=== PATIENT | female | born 1945 | race African-American/Black ===

== ENCOUNTER 2018-09-15 05:03 | Inpatient (IN) ==
--- NOTE | 2018-09-15 11:24 | Diag Imaging Result Doc PS360 ---
EXAM: CHEST-2 VIEWS HISTORY: LEVEL OF AMP TECHNIQUE: Chest two views COMPARISON: 05/27/2018 FINDINGS: The heart is enlarged. There are sternal wires and surgical clips. The lungs are well expanded. Mild increased interstitial markings. These are less pronounced than on the prior study. No consolidation. No pleural effusions. IMPRESSION: Mild interval improvement. Electronically signed by Franck Cameron 09/15/2018 11:21 AM
[2018-09-15 11:53] LABS: BASO# 0.04 X1000 (0.0-0.2); BASO% 0.3 % (0.0-0.8); EOS# 1.77 X1000 (0.0-0.7); EOS% 15.4 % (0.0-10.0); HEMATOCRIT 40.9 % (37.0-47.0); HEMOGLOBIN 11.8 g/dL (12.0-16.0); IMM GRAN# 0.02 X1000 (0.0-0.04); IMM GRAN% 0.2 % (0.0-0.5); LYMPH# 1.49 X1000 (1.2-3.4); MCH 25.3 PG (27-31); MCHC 28.9 g/dL (33-37); MCV 87.6 FL (81-99); MONO# 0.79 X1000 (0.11-0.59); MONO% 6.9 % (1.7-9.3); MPV 9.7 FL (7.4-10.4); NEUT# 7.35 X1000 (1.4-6.5); NEUT% 64.2 % (42.2-75.2); PLT 191 X1000 (130-400); RBC 4.67 XMIL (4.2-5.4); RDW 17.4 % (11.5-14.5); WBC 11.46 X1000 (4.8-10.8)
[2018-09-15] MEDS ORDERED: VANCOMYCIN 1 GM/NS 1 GM/250 ML IVPB ONE (12:13)
[2018-09-15] MEDS ORDERED: REGLAN ONE (12:13)
[2018-09-15] MEDS ORDERED: 1/2 NS 500 ML ONE (12:13)
[2018-09-15] MEDS ORDERED: PEPCID ONE (12:13)
[2018-09-15 12:23] LABS: BANDS 2 % (0-1); EOS 10 % (1-10); LYMPHS 22 % (21-51); MONO 4 % (1-9); SEGS 62 % (42-75)
[2018-09-15 12:25] LABS: ANISOCYTOSIS 1+; HYPOCHROM 1+
[2018-09-15 12:33] LABS: CALCIUM 10.1 mg/dL (8.8-10.2); POTASSIUM 4.1 mmol/L (3.5-5.1)
[2018-09-15 12:36] LABS: CREATININE 5.6 mg/dL (0.5-0.9)
[2018-09-15] MEDS ORDERED: DIPRIVAN 1% ONE (13:20)
[2018-09-15] MEDS ORDERED: FENTANYL ONE (13:20)
[2018-09-15] MEDS ORDERED: XYLOCAINE-MPF 2% ONE (13:24)
[2018-09-15] MEDS ORDERED: VERSED ONE (14:02)
[2018-09-15] MEDS ORDERED: PITRESSIN ONE (14:46)
[2018-09-15] MEDS ORDERED: DILAUDID IV PRN (15:12)
[2018-09-15] MEDS ORDERED: ZOFRAN IV PRN (15:12)
[2018-09-15] MEDS ORDERED: SALINE LOCK IV FLUID XX ONE (15:12)
[2018-09-15] MEDS: DILAUDID ONE ×3 (15:42→22:17)
[2018-09-15] MEDS: NORCO-7.5 PO PRN (16:58)
[2018-09-15] MEDS: CARAFATE LIQUID PO SCH (16:59)
[2018-09-15] MEDS: RENAGEL PO SCH (16:59)
--- NOTE | 2018-09-15 20:45 | VASCULAR LAB ---
DATE: 09/15/2018 REQUESTING PHYSICIAN: Dr. Thomas Latif. INDICATION: Amputation level of the right leg with a history of left above-knee amputation. APPLICATION CONSULTANT: Matt. FINDINGS: Brachial pressure on the right is 152. High thigh on the right is 217. Low thigh on the right is 231. Calf on the right is 277. DP on the right is 288. PT on the right is 0. Toe pressure is 0. KB is 1.89. IMPRESSION: She has pulsatile flow to the level of the tibial vessels; however, the posterior tibial is occluded. Suspect that she would most likely heal an above-knee amputation based off this exam, although her KB is elevated. This does suggest some degree of calcific noncompressibility, and the flow to the calf may be adversely affected. cc: MD Thomas Torres MD
[2018-09-15] MEDS: LIVALO PO SCH (21:35)
[2018-09-15] MEDS: PROTONIX PO SCH (21:35)
[2018-09-15] MEDS: KEFZOL 1 GM/D5W 1 GM/50 ML IVPB IV SCH (21:35)
[2018-09-15] MEDS: ICAR-C PO SCH (21:35)
[2018-09-15] MEDS: PERIDEX MT SCH (21:36)
[2018-09-15] MEDS: NEURONTIN PO SCH (21:37)
[2018-09-15] MEDS: DUONEB (A & A) INH SCH (22:30)
--- NOTE | 2018-09-15 23:40 | OPERATIVE NOTE ---
PROCEDURE DATE: 09/15/2018 PROCEDURE PERFORMED: Right below-knee amputation. SURGEON: Thomas Latif MD. TERRITORY SALES REPRESENTATIVE: PREOPERATIVE DIAGNOSIS: 1. Ischemic gangrene of the right foot. 2. Chronic kidney disease stage 5. POSTOP DIAGNOSIS: 1. Ischemic gangrene of the right foot. 2. Chronic kidney disease stage 5. DESCRIPTION OF PROCEDURE: Satisfactory general anesthesia was achieved. The foot was excluded. The right leg was prepped and draped in a sterile fashion. We marked the skin in a curvilinear fashion 4 fingerbreadths below the tibial tubercle. We then marked the posterior flap 15 cm below the curvilinear incision. We then incised the skin, the area was marked making a short anterior flap, a long posterior flap. We carried our incision in the subcutaneous tissue. Some veins required a 3-0 Polysorb ookcgc-yi-eqrls stitch for bleeding control. We then used electrocautery to go through the subcutaneous tissue to the muscle groups. We divided the anterior muscle group down to the anterior tibial arteries. The artery was clamped and divided and suture ligated with 2-0 silk suture ligature. We then proceeded to the muscle groups through the circumference of the incision. We passed a Kalyn behind the tibia, passed a Gigli saw and then transected the tibia tapering it medially. We then used a periosteal elevator to raise the periosteum off the fibula and transected it a centimeter above into the tibia. We then used a guillotine knife to slide behind both bones reaching the end of the dissection and transected the muscle there and handed off the lower leg and foot. The peroneal and posterior tibial arteries were clamped. We then suture ligated them with 2-0 silk suture ligatures. One small branch also required a 2-0 silk suture ligature. This achieved satisfactory hemostasis. The tibial nerve was ligated right past the tibia and fibula with a 3-0 Polysorb simple tie and transected there. We used a file to smooth off the end of the tibia. We then copiously irrigated the flap. Hemostasis was satisfactory. We then folded the posterior flap anteriorly, used 0 Polysorb to approximate the muscle groups. We then used 3-0 Polysorb in the subcutaneous tissue and lo were used to approximate the skin. Xeroform and sterile 4 x 4s followed by sterile Kerlix was applied. An OCL splint was then positioned to keep the knee straight. This was then covered with a 6 inch Oracio. She tolerated it well. Was sent to the recovery room in satisfactory condition. cc: Thomas Latif MD MTDD
[2018-09-16] MEDS: NORCO-10 PO PRN ×2 (00:56→11:13)
--- NOTE | 2018-09-16 01:29 | NEPHROLOGY CONSULTATION ---
DATE: 09/15/2018 REASON FOR CONSULTATION: Dialysis. HISTORY OF PRESENT ILLNESS: Ms. Sanford is a 73-year-old woman who is well known to me. She has CKD 5D and receives dialysis every Friday, Friday, and Friday. She was admitted for elective right BKA. She has undergone her surgery, and she is back in her room now. She has no other new complaints, but she is having some rhonchi and wheezing that the family has been aware of at home, and they have been treating with nebulizers. No chills or fevers. No sputum production. Her appetite is voracious, and she has been gaining some weight back. PAST MEDICAL HISTORY: CKD 5D, peripheral vascular disease, calciphylaxis, hypertension, diabetes. MEDICATIONS: Home medications include docusate, gabapentin, sevelamer, aspirin, multivitamin, iron, pantoprazole, pitavastatin, polyethylene glycol, sitagliptin, Mucinex, hydrocodone, sucralfate, sennosides. ALLERGIES: Penicillin and amoxicillin. SOCIAL HISTORY: Her recently . She is at home and cared for by her very supportive family. FAMILY HISTORY: Otherwise noncontributory. REVIEW OF SYSTEMS: Otherwise noncontributory. PHYSICAL EXAMINATION: Vital Signs: Blood pressure 105/47, heart rate 72, respirations 21, afebrile. General: No acute distress. Skin: Warm and dry. HEENT: Conjunctivae are pink. Neck: Neck veins are not distended. Heart: Regular. No gallops. Lungs: Equal. No crackles or wheezes. Abdomen: Soft, nontender. Bowel sounds are present. Extremities: Minimal edema. No clubbing or cyanosis. Surgical wound is dressed. IMPRESSION: 1. Chronic kidney disease 5D. She is doing well. She is due for dialysis tomorrow. 2. Electrolytes, acid-base, and volume status. All in target. 3. Wheezing. Will order nebulizer treatments. 4. Anemia. In target. cc: MD Thomas Rocha MD
[2018-09-16] MEDS: DUONEB (A & A) INH SCH ×4 (03:26→22:49)
[2018-09-16 06:38] LABS: BASO# 0.03 X1000 (0.0-0.2); BASO% 0.3 % (0.0-0.8); EOS# 1.03 X1000 (0.0-0.7); EOS% 11.8 % (0.0-10.0); HEMATOCRIT 34.4 % (37.0-47.0); LYMPH# 1.59 X1000 (1.2-3.4); LYMPH% 18.2 % (20.5-51.1); MCH 25.8 PG (27-31); MCHC 29.1 g/dL (33-37); MCV 88.7 FL (81-99); MONO# 0.79 X1000 (0.11-0.59); MPV 10.1 FL (7.4-10.4); NEUT# 5.29 X1000 (1.4-6.5); NEUT% 60.7 % (42.2-75.2); PLT 174 X1000 (130-400); RBC 3.88 XMIL (4.2-5.4); WBC 8.73 X1000 (4.8-10.8)
[2018-09-16 06:55] LABS: CALCIUM 9.3 mg/dL (8.8-10.2); POTASSIUM 4.5 mmol/L (3.5-5.1)
[2018-09-16] MEDS ORDERED: HEPARIN IV PRN (06:58)
[2018-09-16] MEDS ORDERED: NS 2,000 ML MISC PRN (06:58)
[2018-09-16] MEDS ORDERED: TIGHT: 0.2 ML/HR FOR DIALYSIS MISC PRN (06:58)
[2018-09-16 07:00] LABS: CREATININE 6.3 mg/dL (0.5-0.9)
[2018-09-16] MEDS: PERIDEX MT SCH (08:02)
[2018-09-16] MEDS: CARAFATE LIQUID PO SCH ×3 (08:02→18:06)
[2018-09-16] MEDS: KEFZOL 1 GM/D5W 1 GM/50 ML IVPB IV SCH ×2 (08:02→21:02)
[2018-09-16] MEDS: RENAGEL PO SCH ×3 (08:05→18:06)
--- NOTE | 2018-09-16 08:26 | GENERAL SURGERY PROGRESS NOTE ---
DATE: 09/16/2018 SUBJECTIVE: It is 8 o'clock in the morning. Ms. Sanford is doing well. She slept reasonably well last night. Her pain seems to be controlled. Her bandage is intact. She will go for dialysis today. Her hemoglobin is 10, hematocrit 34, white count 8700. Potassium 4.5, BUN 38 and creatinine 6.3. cc: Thomas Latif MD
[2018-09-16] MEDS: PATIENT'S OWN MED NAS SCH (11:20)
--- NOTE | 2018-09-16 12:58 | NEPHROLOGY PROGRESS NOTE ---
DATE: 09/16/2018 SUBJECTIVE: She is sitting up, eating her breakfast. She has minimal pain this morning and has required very little in terms of pain medication. No shortness of breath, nausea, or vomiting. OBJECTIVE: Vital Signs: Blood pressure 148/51, heart rate 68, respirations 14, afebrile. General: No acute distress. Skin: Warm and dry. Conjunctivae are pink. Neck: Neck veins are not distended. Heart: Regular. No gallops. Lungs: Equal. No crackles. Abdomen: Soft, nontender. Bowel sounds present. Extremities: No edema, clubbing, or cyanosis. IMPRESSION AND PLAN: Chronic kidney disease 5D. She will have her routine hemodialysis today. Electrolytes and acid-base are in target. Hemoglobin fell from 11.8 to 10.0 following surgery. Does not meet criteria for transfusion. Observe. cc: MD Thomas Rocha MD
[2018-09-16] MEDS: PROTONIX PO SCH (14:12)
[2018-09-16] MEDS: NEURONTIN PO SCH (14:12)
[2018-09-16] MEDS: NORCO-7.5 PO PRN (14:12)
[2018-09-16] MEDS: COLACE PO SCH (14:12)
[2018-09-16] MEDS: JANUVIA PO SCH (14:12)
[2018-09-16] MEDS: CENTRUM SILVER PO SCH (14:12)
[2018-09-16] MEDS: ICAR-C PO SCH (14:12)
[2018-09-16] MEDS: DILAUDID IV PRN (18:06)
[2018-09-17] MEDS: NORCO-7.5 PO PRN ×4 (00:32→17:40)
[2018-09-17] MEDS: NEURONTIN PO SCH ×3 (00:33→21:40)
[2018-09-17] MEDS: LIVALO PO SCH ×2 (00:33→21:40)
[2018-09-17] MEDS: PROTONIX PO SCH ×3 (00:33→21:40)
[2018-09-17] MEDS: PERIDEX MT SCH ×3 (00:34→21:40)
[2018-09-17] MEDS: ICAR-C PO SCH ×3 (00:34→21:39)
[2018-09-17] MEDS: DUONEB (A & A) INH SCH ×4 (03:35→21:17)
[2018-09-17] MEDS: DILAUDID IV PRN ×2 (03:53→10:47)
[2018-09-17] MEDS: JANUVIA PO SCH (08:13)
[2018-09-17] MEDS: RENAGEL PO SCH ×3 (08:13→16:40)
[2018-09-17] MEDS: CENTRUM SILVER PO SCH (09:20)
[2018-09-17] MEDS: CARAFATE LIQUID PO SCH ×3 (09:20→16:41)
[2018-09-17] MEDS: KEFZOL 1 GM/D5W 1 GM/50 ML IVPB IV SCH ×2 (09:20→21:41)
[2018-09-17] MEDS: COLACE PO SCH (09:20)
[2018-09-17] MEDS: PATIENT'S OWN MED NAS SCH (09:35)
[2018-09-17] MEDS: MIRALAX PO PRN (10:12)
--- NOTE | 2018-09-17 14:47 | NEPHROLOGY PROGRESS NOTE ---
DATE: 09/17/2018 TIME SEEN: 0810. SUBJECTIVE: Ms. Sanford is resting quietly in bed. Her head of the bed is elevated. Her daughter is at her bedside. She states that she is feeling just a little bit better today. She has just received something for pain. OBJECTIVE: Her most recent vital signs: Temperature 98.9, blood pressure 139/ 54, heart rate is 80, respirations 18. She has had 649 in. She has had 2.6 L removed off dialysis. Labs have not been drawn today. Her last potassium was 4.5. Her previous hemoglobin is 10. PHYSICAL EXAMINATION: This is a 73-year-old -[place] female. She is currently resting quietly in bed. Her skin is warm and dry. HEENT: Normocephalic, atraumatic. Conjunctivae pale. She has REBECCA. Mucous membranes are dry. Neck is supple. She had positive hepatojugular reflux. JVD at the 6 cm almaz. Cardiovascular: She has regular rate and rhythm. She has a systolic murmur that was present. Lungs Clear to auscultation bilaterally. Equal excursion. Abdomen soft. Large, round, nontender. Positive bowel sounds. Genitourinary: Not inspected. Minimal void with dialysis assist. Extremities: Bilateral ztxog-nfub-gwgidqmeax. Right continues in a dressing. No edema currently present. Neurological: She is alert and oriented x3. ASSESSMENT AND PLAN: 1. Chronic kidney disease, stage 5D. The patient tolerated dialysis well yesterday. We will plan for dialysis again tomorrow per her routine prescription. 2. Electrolytes, acid-base balance and anemia these all remain fairly stable. 3. Status post op day #2 for right [id number]-rdpsqrrhgp followed by surgical care team. I would like to thank you for allowing us to followup with this patient. Dictated by REJI Gutierrez for Morales Kolb MD Face to face encounter, data reviewed, discussed with Estefani Irby on 09/17/18. I agree with the above assessment and plan of care. cc: REJI Gutierrez MD [facility]. Walker, MD [facility]PITALJeanmarie
--- NOTE | 2018-09-17 15:35 | GENERAL SURGERY PROGRESS NOTE ---
DATE: 09/17/2018 SUBJECTIVE: It is 12:35 p.m. OBJECTIVE: Ms. Sanford's temperature is 99.1, heart rate 84, blood pressure 119/47. She has left discomfort on her right leg today. She is awake and alert. PLAN: Take her splint off tomorrow. Will start working toward rehab transfer, possibly tomorrow. cc: Thomas Latif MD
[2018-09-17] MEDS: MUCINEX PO SCH (21:39)
[2018-09-18] MEDS: DUONEB (A & A) INH SCH ×4 (03:30→21:56)
[2018-09-18] MEDS: NORCO-7.5 PO PRN ×4 (04:14→21:14)
[2018-09-18] MEDS ORDERED: TIGHT: 0.2 ML/HR FOR DIALYSIS MISC PRN (07:26)
[2018-09-18] MEDS ORDERED: HEPARIN IV PRN (07:26)
[2018-09-18] MEDS ORDERED: NS 2,000 ML MISC PRN (07:26)
[2018-09-18] MEDS: JANUVIA PO SCH ×2 (07:56→09:30)
[2018-09-18] MEDS: CARAFATE LIQUID PO SCH ×4 (07:56→17:16)
[2018-09-18] MEDS: RENAGEL PO SCH ×4 (07:56→17:16)
[2018-09-18] MEDS: MUCINEX PO SCH ×3 (07:56→21:15)
[2018-09-18] MEDS: KEFZOL 1 GM/D5W 1 GM/50 ML IVPB IV SCH ×3 (07:56→21:17)
[2018-09-18] MEDS: COLACE PO SCH ×2 (07:57→09:30)
[2018-09-18] MEDS: ICAR-C PO SCH ×3 (07:57→21:15)
[2018-09-18] MEDS: CENTRUM SILVER PO SCH ×2 (07:57→09:30)
[2018-09-18] MEDS: NEURONTIN PO SCH ×3 (07:57→21:15)
[2018-09-18] MEDS: PROTONIX PO SCH ×3 (07:58→21:15)
[2018-09-18] MEDS: PERIDEX MT SCH ×3 (07:58→21:16)
[2018-09-18] MEDS: PATIENT'S OWN MED NAS SCH (08:34)
--- NOTE | 2018-09-18 11:34 | NEPHROLOGY PROGRESS NOTE ---
DATE: 09/18/2018 SUBJECTIVE: The patient is resting in bed, currently undergoing hemodialysis. She has no complaints this morning. OBJECTIVE: Vital Signs: Temperature 99.5 degrees, pulse 74, respiratory rate 16, blood pressure 96/40. Intake 360 mL, output not measured. General: Elderly female, resting in bed. She is awake and alert. She is in no acute distress. HEENT: Normocephalic, atraumatic. REBECCA. Oral mucosa moist. Neck: Supple, without JVD. Cardiovascular: Regular rate and rhythm. Pulmonary: She is clear bilaterally. Abdomen: Soft, with positive bowel sounds. : Not inspected. Extremities: Bilateral AKA. No drainage. Integumentary: Skin is warm and dry. ASSESSMENT AND PLAN: 1. CKD 5D. We will routine dialysis today, 2 K bath, UF to dry weight, 3.5 hour treatment. I did discuss with the dialysis nurses that because of her amputation we may have to adjust her dry weight. Thus far, we have had to back off about a half a liter so far during treatment. 2. Hypotension. Fairly stable. Continue to monitor closely. 3. Electrolytes, acid-base balance, anemia. I will check labs in the morning. I do not have any today. Dictated by REJI Ricketts for Morales Kolb MD Data reviewed, discussed with Priscilla Hameed on 09/18/28. I agree with the above assessment and plan of care. cc: MD Thomas Rocha MD [facility]OSPITALJeanmarie
[2018-09-18] MEDS: MIRALAX PO PRN (14:06)
[2018-09-18] MEDS: SENOKOT PO SCH ×2 (14:15→21:15)
--- NOTE | 2018-09-18 14:53 | GENERAL SURGERY PROGRESS NOTE ---
DATE: 09/18/2018 TIME: 2:00 p.m. SUBJECTIVE: Ms. Sanford just got back from dialysis. She is doing well. OBJECTIVE: Her temperature this morning was 99.5. Her stump is inspected and looks very good. Hemodynamics are okay. The plan will be to get physical therapy to see her. We will plan to discharge her home on Friday if she does not want to go anywhere but [facility] [place] and there is no bed available. cc: Thomas Latif MD
[2018-09-18] MEDS: LIVALO PO SCH (21:16)
[2018-09-19] MEDS ORDERED: TYLENOL PO ONE (00:04)
[2018-09-19] MEDS ORDERED: OXY IR PO ONE (02:56)
[2018-09-19] MEDS: DUONEB (A & A) INH SCH ×4 (03:28→21:54)
[2018-09-19 03:34] LABS: BASO# 0.03 X1000 (0.0-0.2); BASO% 0.3 % (0.0-0.8); EOS# 1.47 X1000 (0.0-0.7); EOS% 13.2 % (0.0-10.0); HEMATOCRIT 35.2 % (37.0-47.0); IMM GRAN# 0.06 X1000 (0.0-0.04); IMM GRAN% 0.5 % (0.0-0.5); LYMPH# 1.57 X1000 (1.2-3.4); LYMPH% 14.1 % (20.5-51.1); MCH 25.3 PG (27-31); MCHC 28.4 g/dL (33-37); MCV 88.9 FL (81-99); MONO# 1.08 X1000 (0.11-0.59); MONO% 9.7 % (1.7-9.3); MPV 9.7 FL (7.4-10.4); NEUT# 6.93 X1000 (1.4-6.5); NEUT% 62.2 % (42.2-75.2); PLT 133 X1000 (130-400); RBC 3.96 XMIL (4.2-5.4); RDW 16.6 % (11.5-14.5); WBC 11.14 X1000 (4.8-10.8)
[2018-09-19] MEDS: OFIRMEV 1000 MG/ISOTONIC SOLN 1,000 MG/100 ML BOTTLE IV SCH ×3 (03:37→18:46)
[2018-09-19 03:46] LABS: CALCIUM 9.2 mg/dL (8.8-10.2); CREATININE 3.5 mg/dL (0.5-0.9); POTASSIUM 3.7 mmol/L (3.5-5.1)
[2018-09-19 06:23] LABS: HEMATOCRIT 33.6 % (37.0-47.0); HEMOGLOBIN 9.6 g/dL (12.0-16.0); MCH 25.5 PG (27-31); MCHC 28.6 g/dL (33-37); MCV 89.4 FL (81-99); RBC 3.76 XMIL (4.2-5.4); RDW 16.7 % (11.5-14.5); WBC 10.89 X1000 (4.8-10.8)
[2018-09-19 06:56] LABS: ALBUMIN 2.9 g/dL (3.5-5.0); CALCIUM 9.1 mg/dL (8.8-10.2); CREATININE 3.6 mg/dL (0.5-0.9); PHOSPHORUS 3.2 mg/dL (2.7-4.5); POTASSIUM 3.5 mmol/L (3.5-5.1)
--- NOTE | 2018-09-19 06:57 | GENERAL SURGERY PROGRESS NOTE ---
DATE: 09/19/2018 SUBJECTIVE: The patient's blood pressure did decrease a little bit through the night, and she did get a fever of 102. She seems to be doing okay right now. OBJECTIVE: Vital Signs: The patient's current temperature 99.3, blood pressure 111/43. General: No acute distress. Cardiovascular: Regular rate and rhythm. Lungs grossly clear. Abdomen soft, appropriately nontender. Extremities: Right fatkb-fui-tozf amputation site seems to be doing okay. Dressing intact. ASSESSMENT AND PLAN: A 73-year-old female status post right kinwf-epd-dyjo amputation. Postoperative state. At this time, we will continue to monitor her blood pressure. Given the complexity of her medical issues, we will get the hospitalist on board. It sounds like she does have transient hypotension during her dialysis episodes, but we will need to monitor. Hopefully, she can still be discharged on Friday to a rehab facility. cc: MD Thomas Nieves MD
[2018-09-19] MEDS: NEURONTIN PO SCH ×2 (08:32→23:13)
[2018-09-19] MEDS: ICAR-C PO SCH ×2 (08:32→23:12)
[2018-09-19] MEDS: MUCINEX PO SCH ×2 (08:32→23:11)
[2018-09-19] MEDS: JANUVIA PO SCH (08:32)
[2018-09-19] MEDS: RENAGEL PO SCH ×3 (08:32→19:23)
[2018-09-19] MEDS: CENTRUM SILVER PO SCH (08:33)
[2018-09-19] MEDS: PERIDEX MT SCH ×2 (08:33→23:13)
[2018-09-19] MEDS: PROTONIX PO SCH ×2 (08:33→23:12)
[2018-09-19] MEDS: COLACE PO SCH (08:33)
[2018-09-19] MEDS: SENOKOT PO SCH ×2 (08:33→23:12)
[2018-09-19] MEDS: KEFZOL 1 GM/D5W 1 GM/50 ML IVPB IV SCH ×2 (08:34→23:13)
[2018-09-19] MEDS: PATIENT'S OWN MED NAS SCH (08:40)
[2018-09-19] MEDS ORDERED: MIRALAX PO SCH (09:00)
--- NOTE | 2018-09-19 13:44 | CONSULTATION ---
DATE AND TIME OF CONSULTATION: 09/19/2018 at 0600. PRIMARY CARE PHYSICIAN: Dr. Liz Tenorio CONTRACT ADMINISTRATION MANAGER: Dr. Kolb REQUESTING PHYSICIAN: Dr. Latif with the surgical team. REASON FOR CONSULTATION: Hypotension. HISTORY OF PRESENT ILLNESS: Ms. Sanford is a 73-year-old female who was admitted on 09/15/2018 for a right kgvdo-wmu-zkmd amputation secondary to ischemic gangrene in the right foot. This surgery was performed on 09/15/2018. She is on postoperative day 4 now. The patient also does have a history of end stage renal disease on hemodialysis. Since the patient's surgery, she does appear to be doing well. The surgical team is following her recovery of her right fsrck-zpk-ourm amputation. While reviewing her chart, it has been noted that the patient has had some transient mild hypotension during and post her dialysis treatments. The patient was noted earlier this morning to be mildly hypotensive with a pressure of 97/36 with a MAP of 49. Repeat blood pressure since that time was 111/43 with a MAP of 58. This was confirmed with a manual blood pressure as well. Other than this, the patient's vital signs have been within normal limits. She did have a mild low grade fever last night of 100.2 orally. The patient is not reporting any symptoms at this time other than her right lower extremity pain secondary to her recent right khhkg-dei-veoq amputation and constipation. She is denying any headache, dizziness, chest pain, shortness of breath, or abdominal pain. She denies any nausea, vomiting, or diarrhea. The patient is actually reporting some constipation. She states she has not had a bowel movement since Friday. She states she normally does take Senokot and MiraLAX at home. She has been on Senokot and Colace here in the hospital. We will go ahead and add on MiraLAX. The patient has had bilateral lower extremity amputation. She does have a right fztvb-lwl-awqk amputation and left wcqhu-xxo-yabg amputation. The left stump does appear to have healed well. There is no erythema, swelling, or warmth noted. The patient's right lower extremity stump is dressed at this time. Dressing is clean and dry. REVIEW OF SYSTEMS: A 14-point review of systems was conducted with the patient , and all were negative except for pertinent positives as mentioned in the above HPI. PAST MEDICAL HISTORY: 1. Status post right athmd-lsu-dgcb amputation secondary to ischemic gangrene of the right foot on 09/15/2018, currently being followed by surgical team. She is receiving antibiotic of Kefzol at this time. 2. End stage renal disease on hemodialysis on Mondays, Wednesdays, and Fridays. 3. Hypertension. 4. Diabetes mellitus type 2. 5. Chronic anemia. 6. Coronary artery disease, status post 2-vessel coronary artery bypass graft. 7. Left breast lesions. PAST SURGICAL HISTORY: 1. Recent right dfezq-cqg-jfhh amputation on 09/15/[address] Latif. 2. Recent left ierjy-kxh-yfkr amputation on 05/26/[address] Latif. 3. Left simple mastectomy on 05/26/[address] Latif. 4. Cholecystectomy. 5. Hernia surgeries. 6. Two-vessel coronary artery bypass graft in 11/2017. 7. Debridement of left breast lesion. SOCIAL HISTORY: The patient has no known history of tobacco, alcohol, or illicit drug use. She does live alone, though does have family members that live close by that do assist in her care. FAMILY HISTORY: Positive for diabetes. ALLERGIES: The patient has allergy to penicillin and amoxicillin. HOME MEDICATIONS: 1. Aspirin 325 mg p.o. q.a.m. 2. Dymista nasal spray 1 spray nasally daily. 3. Cranberry tablets 500 mg p.o. daily. 4. Colace 100 mg p.o. daily. 5. Gabapentin 100 mg p.o. b.i.d. 6. Mucinex DM 1 tablet p.o. daily p.r.n. 7. [place] 7.5 one tablet p.o. q.6 hours p.r.n. for pain. 8. Icar-C one tablet p.o. b.i.d. 9. Centrum Silver 1 tablet p.o. daily. 10.Protonix 40 mg p.o. b.i.d. 11.Livalo 2 mg p.o. nightly at bedtime. 12.MiraLAX 1 dose p.o. daily p.r.n. for constipation. 13.Sennoside 8.6 mg tablet p.o. b.i.d. 14.Sevelamer bicarbonate 1600 mg p.o. t.i.d. 15.Januvia 50 mg p.o. q.a.m. 16.Carafate liquid 1 g p.o. t.i.d. DIAGNOSTIC DATA: White blood cell count is 10,890, hemoglobin 9.6, hematocrit is 33.6, platelet count is 119. Sodium is 136, potassium 3.5, chloride 96, serum bicarb is 27, BUN is 15, creatinine 3.6, GFR is 15, glucose 105. PHYSICAL EXAMINATION: VITAL SIGNS: Temperature 99.3, heart rate 82, respirations 18, blood pressure 111/43 with a MAP of 58, oxygen saturation is 100% on nasal cannula at 2 L. GENERAL: Ms. Sanford is a pleasant 73-year-old female. She was resting with eyes closed upon my initial arrival to the room, though was easily arousable with verbal stimulation. Once awakened, she was alert and oriented to person, place, time, and situation. She was able to answer questions appropriately. HEENT: Head is atraumatic and normocephalic. Pupils are equal, round and reactive to light. Oral mucosa is moist. Oropharynx is clear. NECK: Supple. Trachea midline. CARDIOVASCULAR: The patient has S1 and S2 present. Regular rate and rhythm. PULMONARY: The patient has symmetrical chest expansion bilaterally. Lung sounds are clear to auscultation in bilateral full torres. ABDOMEN: Soft, nontender, nondistended. Bowel sounds were present in all 4 quadrants and were normoactive. EXTREMITIES: No cyanosis, clubbing, or edema noted. The patient does have a previous left above- the-knee amputation. She does have a recent right fwvgg-aor-ejzx amputation. Her left stump does appear to be within normal limits. There was no erythema, warmth, or swelling noted. Her right stump is dressed at this time. It does have a clean and dry dressing noted. Radial pulses were 2+ bilaterally. Capillary refill less than 3. INTEGUMENTARY: The patient's skin is pink, warm, and dry. NEUROLOGICAL: The patient is alert and oriented to person, place, time, and situation. There do not appear to be any focal neurological deficits noted at this time. ASSESSMENT AND PLAN: 1. Status post right kpkvr-uqy-jeuh amputation secondary to ischemic gangrene of the right foot. The patient is postoperative day 4. She is reporting some right lower extremity pain, though other than this does appear to be doing well. The surgical team is following her. We will defer further treatment and management of this to them. 2. End stage renal disease on hemodialysis. Dr. Kolb has been consulted and is following the patient's care for her renal disease. We will continue to follow along as well. 3. Hypotension. This is mild. Looking back through her notes for this admission, the patient has had some transient hypotension with and post dialysis. She did have a mildly low blood pressure reading earlier this morning of 97/36 with a MAP of 49, though recheck blood pressure was 111/43 with a MAP of 58. This was confirmed with a manual blood pressure as well. At this time, we will just monitor her blood pressure closely. She does have vital signs ordered q.4 hours. At this time, she does not require any intervention. We will place her on cardiac telemetry as well for close monitoring. 4. Diabetes mellitus type 2. We will continue her Januvia. 5. History of coronary artery disease, status post coronary artery bypass graft. The patient is on the Medical Floor. As previously mentioned, we will do frequent vital signs checks, and she will be placed on telemetry. We will continue to follow along. Also the patient is experiencing some constipation. She has not had a bowel movement since Friday. We will add on some MiraLAX to her bowel regimen as well and monitor her response to these medications. Further orders and recommendations pending hospital course, diagnostic studies, and physician evaluation. Dictated by REJI Grossman for Olga Bustamante MD cc: MD Tino Davis MD Independent exam and assessment performed by me. Exam only notable for R BKA stump which is intact and fresh. There is also an old AKA LLE without any breakdown. I was concerned about IV opiates because of her marginal BP and switched her to IV Ofirmev scheduled and PO OxyIR PRN. IVF could not be given because pt is anuric and will be at risk for fluid overload. MTDD
--- NOTE | 2018-09-19 15:44 | PROGRESS NOTE ---
DATE: 09/19/2018 REFERRING PHYSICIAN: Edgardo Demarco MD. REASON FOR CONSULTATION: Fever and hypertension. CHIEF COMPLAINT: The patient had fever with a T-max of 100.8 yesterday, and she was marginally hypotensive with MAP in the 50s, so medicine was consulted. SUBJECTIVE: At the time of my encounter, the patient is sleepy. The patient's daughter is at bedside and is the decision maker. History was obtained from her. The patient did not have any congestion. She did not have any chest pain or shortness of breath. Currently , her vital signs show a temperature of 97.7, pulse 66, blood pressure 105/36, and she was saturating between 90- 100% on 2 L per nasal cannula. OBJECTIVE: The patient appeared morbidly obese. Does not appear in acute distress. Air entry bilaterally is equal. No wheezing or crackles. Essentially normal. Abdomen: Obese. Nontender. Extremities: Lower extremities reveal that the patient had right recent below- the-knee amputation. The wound was dressed. It was not soaked. She had left above-the- knee amputation. The wound stump was well healed. LABORATORY: Suggested stable hemoglobin, hematocrit, platelets and WBC count. Electrolytes were within acceptable limits except for an elevated BUN and creatinine because of end stage renal disease. No microbiology data. No new imaging data. ASSESSMENT AND PLAN: 1. Hypotension and fever: The patient did have hypotension during which she was not tachycardic and asymptomatic. This could be likely related to opioid medication use, poor p.o. intake and general debility as well as hemodialysis related. I would suggest to continue to monitor her. She had a one time fever. I would follow the CBC tomorrow to see if she develops worsening leukocytosis. Currently, it appears to be at an acceptable range. No need for antibiotics. 2. Status post right tyngg-sft-pmrl amputation secondary to ischemic gangrene of the right foot. Today is postoperative day four. Being following by surgical team. 3. End stage renal disease on hemodialysis on Friday, Friday, Friday schedule. 4. Noninsulin dependent diabetes mellitus. Continue Januvia. Currently in acceptable range. 5. History of coronary artery disease status post coronary artery bypass grafting. I would appreciate surgery recs about restarting her Aspirin 325 daily. 6. H/o anemia with positive FOBT on previous admission: Continue PPI BID. She is no longer on sucralfate. I would not restart it considering her ESRD and stable hematocrit. DISPOSITION: The patient remains on the medical floor. We will follow to make sure she has a bowel movement. The plan of care was discussed with the patient and daughter at bedside who is the decision maker. All of her questions have been answered. cc: Tino Preciado MD MTDJeanmarie
[2018-09-19] MEDS ORDERED: OXY IR PO PRN (21:23)
[2018-09-19] MEDS: LIVALO PO SCH (23:11)
[2018-09-19] MEDS: MIRALAX PO SCH (23:14)
[2018-09-20] MEDS: DUONEB (A & A) INH SCH ×4 (04:02→22:00)
[2018-09-20] MEDS: MIRALAX PO SCH ×5 (05:17→21:05)
[2018-09-20] MEDS: RENAGEL PO SCH ×4 (06:08→16:16)
--- NOTE | 2018-09-20 06:49 | GENERAL SURGERY PROGRESS NOTE ---
DATE: 09/20/2018 SUBJECTIVE: The patient seems to be doing better. Her blood pressure seems to be doing better. OBJECTIVE: Vital Signs: The patient is currently with a temperature of 99.7 degrees but the remainder of her vital signs appear stable. General Examination: No acute distress. Cardiovascular: Regular rate and rhythm. Lungs: Grossly clear. Abdomen: Soft, nontender. Extremities: Amputation site appears to be healing okay. ASSESSMENT AND PLAN: A 73-year-old female status post right [id number] amputation. Postoperative state. At this time, continue to monitor blood pressure. She seems to be doing better overall. Hopefully, she can be discharged to the rehab facility on Friday. cc: MD Tino Nieves MD
[2018-09-20] MEDS: KEFZOL 1 GM/D5W 1 GM/50 ML IVPB IV SCH ×2 (08:32→21:05)
[2018-09-20] MEDS: NEURONTIN PO SCH ×2 (08:35→21:05)
[2018-09-20] MEDS: SENOKOT PO SCH (08:35)
[2018-09-20] MEDS: ICAR-C PO SCH ×2 (08:36→21:05)
[2018-09-20] MEDS: CENTRUM SILVER PO SCH (08:36)
[2018-09-20] MEDS: JANUVIA PO SCH (08:36)
[2018-09-20] MEDS: PROTONIX PO SCH ×2 (08:36→21:05)
[2018-09-20] MEDS: PERIDEX MT SCH ×2 (08:36→21:05)
[2018-09-20] MEDS: COLACE PO SCH (08:36)
[2018-09-20] MEDS: MUCINEX PO SCH (08:36)
[2018-09-20] MEDS: PATIENT'S OWN MED NAS SCH (08:44)
[2018-09-20] MEDS ORDERED: DULCOLAX PR ONE (18:03)
[2018-09-20] MEDS ORDERED: TYLENOL PO PRN (18:36)
[2018-09-20] MEDS ORDERED: MUCINEX PO SCH (21:00)
[2018-09-20] MEDS ORDERED: SENOKOT PO SCH (21:00)
[2018-09-20] MEDS: LIVALO PO SCH (21:05)
[2018-09-21] MEDS: DUONEB (A & A) INH SCH ×3 (03:50→16:35)
[2018-09-21] MEDS: RENAGEL PO SCH ×2 (06:42→12:30)
[2018-09-21] MEDS ORDERED: HEPARIN IV PRN (06:51)
[2018-09-21] MEDS ORDERED: NS 2,000 ML MISC PRN (06:51)
[2018-09-21] MEDS ORDERED: TIGHT: 0.2 ML/HR FOR DIALYSIS MISC PRN (06:51)
[2018-09-21 06:57] LABS: MCH 25.9 PG (27-31); MCHC 29.4 g/dL (33-37); MCV 88.1 FL (81-99); MPV 10.6 FL (7.4-10.4); RBC 3.86 XMIL (4.2-5.4); RDW 16.3 % (11.5-14.5); WBC 11.22 X1000 (4.8-10.8)
[2018-09-21 07:09] LABS: ALBUMIN 2.7 g/dL (3.5-5.0); CALCIUM 9.5 mg/dL (8.8-10.2); PHOSPHORUS 5.3 mg/dL (2.7-4.5); POTASSIUM 4.3 mmol/L (3.5-5.1)
[2018-09-21 07:19] LABS: CREATININE 7.3 mg/dL (0.5-0.9)
[2018-09-21] MEDS ORDERED: LACTULOSE PO PRN (08:00)
--- NOTE | 2018-09-21 10:28 | PROGRESS NOTE ---
DATE: 09/20/2018 INTERVAL HISTORY: Patient has not had a bowel movement. SUBJECTIVE: She is awake, alert, sitting in the bed. Denies any complaints. She had some irritation of nose because of nasal cannula and had some epistaxis. She is coughing up some clots of blood. She denies any cough otherwise. OBJECTIVE: Vital Signs: Temperature 98.7, pulse 81, blood pressure 100/44, saturation 98% on 2 L nasal cannula. PHYSICAL EXAMINATION: General: Appears morbidly obese. Does not appear in acute distress. Dried flecks of blood in bilateral nares. Oral cavity is moist, not congested. Respiratory: Air entry bilaterally equal. No wheezes, rhonchi, crackles. Cardiovascular: S1, S2 normal. No murmur, rub or gallop. Abdomen: Soft, nontender. Extremities: Lower extremity, she has right recent below-knee amputation with lo. There is mild soakage of blood, but no pus. No excruciating tenderness or erythema around wound site. 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 The wound stump was well healed. LABS: No new labs today. ASSESSMENT AND PLAN: 1. Hypotension and fever, resolved. She is not making any urine. She denies fevers, chills or cough. She is making some sputum and had a recent episode of bronchitis for which she had completed a course of Z-Nish. I do not see any need of chest x-ray at the moment. Continue to monitor vitals. 2. 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 Today is postoperative day #5, being followed by surgical team. Appreciate surgery 's recommendation about restarting home aspirin at the time of discharge. 3. End-stage renal disease, on Friday, Friday, Friday hemodialysis. 4. Jrn-fyejoli-fqtfizdlw diabetes mellitus. Continue Januvia, currently in acceptable range. 5. History of coronary artery disease status post CABG. Appreciate Surgery recommendation about restarting home aspirin 325 a day. 6. History of anemia with positive FOB on previous admission. Continue PPI b.i.d. No need of sucralfate considering the potential aluminum toxicity associated 7. Constipation. Continue MiraLAX, senna and docusate. I will give her suppository. 8. Disposition: The patient has potentially rehab transfer early next week. I agree with that. Thank you for allowing us to take part in this patient's care. cc: Tino Preciado MD MTDD
[2018-09-21] MEDS: PERIDEX MT SCH (11:09)
[2018-09-21] MEDS: KEFZOL 1 GM/D5W 1 GM/50 ML IVPB IV SCH (11:10)
--- NOTE | 2018-09-21 13:12 | NEPHROLOGY PROGRESS NOTE ---
DATE: 09/21/2018 TIME SEEN: 0810. SUBJECTIVE: Ms. Sanford is resting quietly in bed. Head of the bed is elevated. OBJECTIVE: General: She is in no acute distress. Vital signs: Temperature 97.9 degrees, blood pressure 131/58, heart rate 79, respirations 18. She is on 2 L nasal cannula. Last recorded saturation 94%. Skin: Warm and dry. HEENT: Normocephalic, atraumatic. Conjunctiva is pale. She has REBECCA. Mucous membranes are dry. Neck: Supple. Trachea midline. No evidence of JVD. Cardiovascular: She has regular rate and rhythm. She is without murmur or gallop. Lungs: Basically clear to auscultation bilaterally. Equal excursion. Abdomen: Soft , nontender, positive bowel sounds. Genitourinary: Not inspected. Minimal void with dialysis assist. Extremities: Bilateral BKA. Neurological: She is alert and oriented x3. INPUT AND OUTPUT: She has had 900 in, she has had 0 recorded out. LABORATORIES: Sodium 136, potassium is 3.4, CO2 23, chloride 97, BUN 37, creatinine is 7.3, glucose 87, anion gap 16, calcium 9.5, albumin 2.7, with a phosphorus 5.3. White count 11.22, hemoglobin 10, hematocrit 34, platelet count 17.8. ASSESSMENT AND PLAN: 1. Chronic kidney disease stage 5d. We will place the patient on dialysis today. She is to dialyze for [address] her on a 2K bath. She is to be pulled 1 to 2 L below her outpatient dry weight. 2. Electrolytes and acid-base balance and anemia. These are all close to target. 3. Right leg amputation. Patient is doing well. States that she is to go home this afternoon. The patient has been instructed to attend her outpatient dialysis clinic as per her normal prescription. I would to thank you for allowing us to follow with this patient. Dictated by REJI Gutierrez for Morales Kolb MD Face to face encounter, data reviewed, discussed with Estefani Irby on 09/21/18. I agree with the above assessment and plan of care. cc: REJI Gutierrez MD Siddharth Patel, MD MTDD
--- NOTE | 2018-09-21 13:27 | GENERAL SURGERY PROGRESS NOTE ---
DATE: 09/21/2018 Ms. Sanford is doing well. She is awake and alert. Her stump looks good. Temperature is 99.1 degrees. Hemodynamics are okay. The plan will be to discharge her today after dialysis. She will return to see me in the office in 2 weeks. cc: MD Tino Dunn MD
--- NOTE | 2018-09-21 15:16 | PROGRESS NOTE ---
DATE: 09/21/2018 Interval history. She has not had any fever episodes. She has not had any hypotension episode. SUBJECTIVE: Patient is feeling fine. She is ready to go home. Patient and family member at bedside state that since there were no rehab beds they would like her to go home. Patient denies any chest pain. She denies any shortness of breath. She has some postnasal drip and cough which is bringing up expectoration. OBJECTIVE: Temperature 99.1 degrees, pulse 85, blood pressure 129/63, respiratory rate 16, saturating 99% 2 L nasal cannula. General: Appears morbidly obese. Does not appear in acute distress. Oral cavity is moist. No pharyngeal congestion. Air entry bilateral equal, no wheeze rhonchi, mild bilateral infrascapular crackles. S1, S2 normal. No murmur, rub, or gallop. Abdomen: Soft, nontender. Extremities: She has a right recent below-knee amputation. The stump has lo and slight bleeding, there is no dressing today. She has left above-knee amputation before on the left side. The stump appears well healed . LAB: Suggestive of persistent leukocytosis, stable hemoglobin, hematocrit, elevated BUN and creatinine, acceptable range of blood sugars. ASSESSMENT AND PLAN: 1. Hypotension and fever resolved. 2. 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 From my is okay to restart her aspirin which was for primary cardiovascular disease prevention. 3. End-stage renal disease on Friday, Friday, Friday hemodialysis nephrology on board. 4. Vbd-ibfjnrr-jvkkswwhh diabetes mellitus, continue Januvia, currently in acceptable range. 5. History of coronary artery disease status post coronary artery bypass graft, okay to restart aspirin 325 daily for secondary prophylaxis if surgery is okay considering slight bleeding at wound site. 6. History of anemia with positive fecal occult blood on previous admission, continue PPI b.i.d., currently hemoglobin stable. 7. Continue MiraLAX, senna, docusate for constipation. 8. Disposition . Patient is likely to be transferred to home today as per the history given by patient's family at bedside. All of their questions have been answered. Thank you for allowing us to take part in this patient's care. cc: Tino Preciado MD
[2018-09-21 17:11] VITALS: BP 117/45
--- NOTE | 2018-09-29 05:50 | DISCHARGE SUMMARY ---
ADMISSION DATE: 09/15/2018 DISCHARGE DATE: 09/21/2018 PRIMARY DISCHARGE DIAGNOSIS: Ischemic gangrene of the right foot. PRIMARY PROCEDURE: Right below-knee amputation. OTHER DIAGNOSES: Include end-stage renal disease, decubitus ulcer. BRIEF HISTORY: This is a 73-year-old lady who had undergone a previous left AKA and a left mastectomy for calciphylaxis. She denies progressive ischemic gangrene of the right foot that has not healed with conservative therapy. She is not a bypass candidate. After admission we did a lower extremity arterial study proving she had pulsatile waveform below the knee, so we proceed with a below-knee amputation on 09/15/2018. She did generally well and was maintained on Kefzol postoperative. She dialyzed during the hospital uneventfully. The splint was removed, the stump was inspected and it was healing well. So by 09/21/2018, it was felt she could be discharged home. She did not want to go to a local rehabilitation facility and a bed at [facility] was not available so we allowed her to go home. She will resume her usual decubitus ulcer treatment for her sacrum, and she will return to the office in 2 weeks for a staple removal. cc: MD Tino Dunn MD
== END 2018-09-21 19:07 | disposition home health service (06) | DRG 239 ==
LOC: SURHOLD 05:03 → SUATTDRO 05:03 → EDSTATUS 14:00 → 4N 15:16
PROVIDERS: ADMIT Internal Medicine; ATTEND Surgery
CPT/HCPCS: 71020; 71046; 80048; 80069; 82948; 85025; 85027; 88307; 93922; 93923; 94640; 94761; 97110; 97162; 97167; 97530; 97535; A9270; J0131; J0690; J1170; J1644; J2250; J3010; J3370; J7030; XXXXX